=== PATIENT | male | born 1955 | race Caucasian/White ===

== ENCOUNTER 2025-05-07 06:26 | Day surgery (SDC) | payer OTHER ==
[2025-04-29 11:01] VITALS: BMI 27.0
[2025-05-07 08:57] VITALS: TEMP 97.8
[2025-05-07 11:46] VITALS: RESP 15
[2025-05-07 11:48] VITALS: BP 131/72; PULSE 67
== END 2025-05-07 11:45 | disposition home or self-care (01) ==
LOC: JASU-ENDO 06:26
PROVIDERS: ATTEND Internal Medicine Gastroenterology
PROC: 0DBL8ZX Excision of Transverse Colon, Via Natural or Artificial Opening Endoscopic, Diagnostic (ICD-10-PCS; 2025-05-07)
PROC: 0DBM8ZX Excision of Descending Colon, Via Natural or Artificial Opening Endoscopic, Diagnostic (ICD-10-PCS; 2025-05-07)
PROC: 0DBJ8ZX Excision of Appendix, Via Natural or Artificial Opening Endoscopic, Diagnostic (ICD-10-PCS; principal; 2025-05-07 09:30)
DX: Z12.11 Encounter for screening for malignant neoplasm of colon (principal); Z86.0100 Personal history of colon polyps, unspecified; D12.1 Benign neoplasm of appendix; D12.3 Benign neoplasm of transverse colon; D12.4 Benign neoplasm of descending colon; K64.8 Other hemorrhoids
CPT/HCPCS: 88305-TC